=== PATIENT | female | born 1975 | race Caucasian/White ===

== ENCOUNTER 2017-07-14 17:53 | Emergency (ER) | payer SELFPAY ==
[~2017-07-14] VITALS: Ht 172.7 cm; Wt 142.4 kg
[2017-07-14 18:12] VITALS: Ht 172.7 cm; Wt 142.4 kg
[2017-07-14 20:45] VITALS: BP 125/60
== END 2017-07-14 20:45 | disposition home or self-care (01) ==
LOC: ED 17:53
DX: M54.5 Low back pain (principal); I10 Essential (primary) hypertension; Z88.2 Allergy status to sulfonamides
CPT/HCPCS: J1885; J3010